=== PATIENT | male | born 1950 | race Caucasian/White ===

== ENCOUNTER 2016-09-14 08:20 | Day surgery (SDC) | payer OTHER, MEDICARE, BC ==
[~2016-09-14 08:20] MED LIST: LIDOCAINE HCL 1% MPF SOL ONE; PROPOFOL 500 MG/50 ML EMU IV ONE
[2016-09-14 10:46] VITALS: BP 123/49; PULSE 97; RESP 18; TEMP 97.6; O2SAT 96
== END 2016-09-14 11:10 | disposition home or self-care (01) | DRG 379 ==
LOC: SURG 08:20
PROVIDERS: ATTEND Surgery
DX: K92.1 Melena (principal); K31.7 Polyp of stomach and duodenum; K57.30 Diverticulosis of large intestine without perforation or abscess without bleeding; D12.3 Benign neoplasm of transverse colon; K63.5 Polyp of colon
CPT/HCPCS: 99001; J2001; J2704